=== PATIENT | female | born 1955 | race Caucasian/White ===

== ENCOUNTER 2021-08-22 20:21 | Emergency (ER) | payer MEDICARE ==
[~2021-08-22] VITALS: Ht 177.8 cm; Wt 82.0 kg
[2021-08-22 20:24] VITALS: BP 152/85
== END 2021-08-23 00:26 | disposition left against medical advice (07) ==
LOC: ER 20:21
DX: Z53.21 Procedure and treatment not carried out due to patient leaving prior to being seen by health care provider (principal)
CPT/HCPCS: 93005